=== PATIENT | male | born 1945 | race Caucasian/White ===

== ENCOUNTER 2017-06-01 04:47 | Emergency (ER) | payer MEDICARE ==
[~2017-06-01] VITALS: Ht 177.8 cm; Wt 84.0 kg
[2017-06-01 04:52] VITALS: BP 132/76; PULSE 97; RESP 18; TEMP 98.4; O2SAT 96
[2017-06-01 05:00] VITALS: BP_SYST 121; BP_SYST 133; BP_DIAS 63; BP_DIAS 82; PULSE 87
[2017-06-01 05:02] VITALS: BP 121/83; PULSE 96; RESP 26; O2SAT 96
[2017-06-01] MEDS ORDERED: SODIUM CHLOR 0.9% 1000 ML INJ 1,000 ML IV SCH (05:06)
[2017-06-01] MEDS ORDERED: SODIUM CHLORIDE 0.9% FLUSH 10 ML FLUSH IV FLUSH PRN (05:15)
[2017-06-01] MEDS ORDERED: MORPHINE SULFATE 8 MG/ML INJ IV PUSH ONE (05:15)
[2017-06-01] MEDS ORDERED: ONDANSETRON HCL 4 MG/2 ML VIAL IVP ONE (05:15)
[2017-06-01] MEDS ORDERED: ASPI81CH7 CHEW (05:16)
[2017-06-01] MEDS ORDERED: METO50TA PO (05:16)
[2017-06-01] MEDS ORDERED: PRAS10TA PO (05:16)
[2017-06-01] MEDS ORDERED: ATOR80TA45 PO (05:16)
[2017-06-01] MEDS ORDERED: SPIR25TA PO (05:16)
[2017-06-01] MEDS ORDERED: LOSA25TA PO (05:16)
[2017-06-01 05:19] VITALS: O2SAT 96
--- NOTE | 2017-06-01 05:19 | PD ---
HPI Chief Complaint: Abdominal Pain Time Seen by Provider: 05:03 Travel History International Travel<30 days: No Contact w/Intl Traveler<30days: No Traveled to known affect area: No History of Present Illness HPI 71-year-old male complains of abdominal pains which radiates from the lower back to the lower anterior abdomen. It started about 4 hours ago gradually. The pain is constantly worsening. One episode of vomiting reported. No nausea. No diarrhea. No fever. No similar prior pains. No unusual foods. Patient denies any known history of abdominal aneurysm. He does report a history of hypertension hyperlipidemia and coronary artery disease. PFSH Past Medical History Hx Anticoagulant Therapy: Yes Social History Tobacco Use: No Allergies-Medications (Allergen,Severity, Reaction): Coded Allergies: heparin (Verified Allergy, Intermediate, 06/01/17) Reported Meds & Prescriptions Reported Meds & Active Scripts Active Flomax (Tamsulosin HCl) 0.4 Mg Cap 0.4 Mg PO HS Zofran Odt (Ondansetron Odt) 4 Mg Tab 4 Mg SL Q8HR PRN Percocet (Oxycodone-Acetaminophen) 5-325 mg Tab 1-2 Tab PO Q6H PRN Reported Metoprolol Tartrate 50 Mg Tab 50 Mg PO DAILY Aspirin Children's (Aspirin) 81 Mg Chew 81 Mg CHEW DAILY Losartan (Losartan Potassium) 25 Mg Tab 12.5 Mg PO DAILY Effient (Prasugrel) 10 Mg Tab 10 Mg PO DAILY Atorvastatin (Atorvastatin Calcium) 80 Mg Tab 80 Mg PO HS Spironolactone 25 Mg Tab 25 Mg PO DAILY Review of Systems Except as stated in HPI: all other systems reviewed are Neg General / Constitutional: No: Fever Physical Exam Narrative GENERAL: 71-year-old male moderate distress secondary to pain Vital Signs Date Time Temp Pulse Resp B/P (MAP) Pulse Ox O2 Delivery O2 Flow Rate FiO2 06/01/17 05:02 96 26 121/83 (96) 96 Room Air 06/01/17 04:52 98.4 97 18 132/76 (94) 96 SKIN: Warm and dry. HEAD: Atraumatic. Normocephalic. EYES: Pupils equal and round. No scleral icterus. No injection or drainage. ENT: No nasal bleeding or discharge. Mucous membranes pink and moist. NECK: Trachea midline. No JVD. CARDIOVASCULAR: Regular rate and rhythm. RESPIRATORY: No accessory muscle use. Clear to auscultation. Breath sounds equal bilaterally. GASTROINTESTINAL: Abdomen is soft. There is no focus of tenderness. MUSCULOSKELETAL: Extremities without clubbing, cyanosis, or edema. No obvious deformities. NEUROLOGICAL: Awake and alert. No obvious cranial nerve deficits. Motor grossly within normal limits. Five out of 5 muscle strength in the arms and legs. Normal speech. PSYCHIATRIC: Appropriate mood and affect; insight and judgment normal. Data Data Last Documented VS Orders Orders Complete Blood Count With Diff (06/01/17 05:06) Comprehensive Metabolic Panel (06/01/17 05:06) Lipase (06/01/17 05:06) Lactic Acid (06/01/17 05:06) Urinalysis - C+S If Indicated (06/01/17 05:06) Ct Abd/Pel W Iv Contrast(Rout) (06/01/17 05:06) Iv Access Insert/Monitor (06/01/17 05:06) Ecg Monitoring (06/01/17 05:06) Oximetry (06/01/17 05:06) Ondansetron Inj (Zofran Inj) (06/01/17 05:15) Sodium Chlor 0.9% 1000 Ml Inj (Ns 1000 M (06/01/17 05:06) Sodium Chloride 0.9% Flush (Ns Flush) (06/01/17 05:15) Morphine Inj (Morphine Inj) (06/01/17 05:15) Ketorolac Inj (Toradol Inj) (06/01/17 05:45) Sodium Chlor 0.9% 1000 Ml Inj (Ns 1000 M (06/01/17 05:45) Hydromorphone Pf Inj (Dilaudid Pf Inj) (06/01/17 05:45) Iohexol 350 Inj (Omnipaque 350 Inj) (06/01/17 05:48) Labs Laboratory Tests Test 06/01/17 05:00 06/01/17 06:30 White Blood Count 14.5 TH/MM3 Red Blood Count 5.27 MIL/MM3 Hemoglobin 15.6 GM/DL Hematocrit 47.4 % Mean Corpuscular Volume 89.9 FL Mean Corpuscular Hemoglobin 29.5 PG Mean Corpuscular Hemoglobin Concent 32.9 % Red Cell Distribution Width 12.8 % Platelet Count 287 TH/MM3 Mean Platelet Volume 9.0 FL Neutrophils (%) (Auto) 82.6 % Lymphocytes (%) (Auto) 9.2 % Monocytes (%) (Auto) 7.8 % Eosinophils (%) (Auto) 0.2 % Basophils (%) (Auto) 0.2 % Neutrophils # (Auto) 12.1 TH/MM3 Lymphocytes # (Auto) 1.3 TH/MM3 Monocytes # (Auto) 1.1 TH/MM3 Eosinophils # (Auto) 0.0 TH/MM3 Basophils # (Auto) 0.0 TH/MM3 CBC Comment DIFF FINAL Differential Comment Blood Urea Nitrogen 20 MG/DL Creatinine 1.20 MG/DL Random Glucose 171 MG/DL Total Protein 7.6 GM/DL Albumin 3.9 GM/DL Calcium Level 9.0 MG/DL Alkaline Phosphatase 98 U/L Aspartate Amino Transf (AST/SGOT) 17 U/L Alanine Aminotransferase (ALT/SGPT) 35 U/L Total Bilirubin 0.3 MG/DL Sodium Level 139 MEQ/L Potassium Level 3.8 MEQ/L Chloride Level 106 MEQ/L Carbon Dioxide Level 23.3 MEQ/L Anion Gap 10 MEQ/L Estimat Glomerular Filtration Rate 60 ML/MIN Lactic Acid Level 2.8 mmol/L Lipase 87 U/L Urine Collection Type CLEAN CATCH Urine Color YELLOW Urine Turbidity SLIGHT Urine pH 5.5 Urine Specific [place] 1.025 Urine Protein TRACE mg/dL Urine Glucose (UA) 100 mg/dL Urine Ketones NEG mg/dL Urine Occult Blood LARGE Urine Nitrite NEG Urine Bilirubin NEG Urine Urobilinogen 0.2 MG/DL Urine Leukocyte Esterase NEG Urine RBC 15-19 /hpf Urine Squamous Epithelial Cells 0-5 /hpf Urine Amorphous Sediment FEW Microscopic Urinalysis Comment CULT NOT INDICATED Urine Collection Time 0630 [facility] Medical Decision Making Medical Screen Exam Complete: Yes Emergency Medical Condition: Yes Differential Diagnosis Constipation, Gastritis, Acute Cholecystitis, Biliary Colic, Pancreatitis, COSTA , Hepatitis, Bowel Obstruction, Cystitis, Mesenteric Ischemia, AAA, Appendicitis , Renal Stone/Hydronephrosis, GERD, perforated viscous Narrative Course CBC & BMP Diagram 06/01/17 05:00 Total Protein 7.6, Albumin 3.9, Calcium Level 9.0, Alkaline Phosphatase 98, Aspartate Amino Transf (AST/SGOT) 17, Alanine Aminotransferase (ALT/SGPT) 35, Total Bilirubin 0.3 UA Last Impressions Abdomen/Pelvis CT 06/01/17 0506 Signed Impressions: Service Date/Time: Thursday, June 01, 2017 05:33 - CONCLUSION: 4 x 6 x 5 mm left UVJ stone causing severe obstructive uropathy. The stone can be faintly seen on the [facility] radiograph. Jefry Kumar MD Diagnosis Primary Impression: Kidney calculus Referrals: Primary Care Physician Urologist call for appointment Med/Other Pt SpecificInfo: Prescription(s) given Scripts Tamsulosin (Flomax) 0.4 Mg Cap 0.4 MG PO HS for Manage Prostate Problems, #7 CAP 0 Refills Prov: Teo Ferrera MD 06/01/17 Ondansetron Odt (Zofran Odt) 4 Mg Tab 4 MG SL Q8HR Y for Nausea/Vomiting, #10 TAB 0 Refills Prov: Toe Ferrera MD 06/01/17 Oxycodone-Acetaminophen (Percocet) 5-325 mg Tab 1-2 TAB PO Q6H Y for PAIN SCALE 6 TO 10, #15 TAB 0 Refills Prov: Teo Ferrera MD 06/01/17 Disposition: 01 DISCHARGE HOME Condition: Stable Teo Ferrera MD Jun 01, 2017 05:19
[2017-06-01 05:26] LABS: CHLORIDE 106 MEQ/L (98-107); SODIUM (NA) 139 MEQ/L (136-145)
[2017-06-01 05:29] LABS: ALBUMIN 3.9 GM/DL (3.4-5.0); BICARBONATE 23.3 MEQ/L (21.0-32.0); BLOOD UREA NITROGEN 20 MG/DL (7-18); GLUCOSE,RANDOM 171 MG/DL (74-106)
[2017-06-01 05:32] LABS: ALT (GPT) 35 U/L (12-78); AST (GOT) 17 U/L (15-37); GLOMERULAR FILTRATION RATE 60 ML/MIN (>89)
[2017-06-01 05:34] LABS: TOTAL BILIRUBIN ADULT 0.3 MG/DL (0.2-1.0); TOTAL PROTEIN 7.6 GM/DL (6.4-8.2)
[2017-06-01 05:35] LABS: ALKALINE PHOSPHATASE 98 U/L (45-117)
[2017-06-01] MEDS ORDERED: SODIUM CHLOR 0.9% 1000 ML INJ 1,000 ML IV ONE (05:45)
[2017-06-01] MEDS ORDERED: HYDROmorphone HCL PF 2 MG/ML VIAL IV PUSH ONE (05:45)
[2017-06-01] MEDS ORDERED: KETOROLAC TROMETHAMINE 30 MG/ML (IVP) VIAL IV PUSH ONE (05:45)
[2017-06-01 05:46] VITALS: BP 128/73; PULSE 92; RESP 16; O2SAT 93
[2017-06-01] MEDS ORDERED: IOHEXOL 350 MG/ML 10 ML VIAL (for RAD DIAG) IVCONTRAST ONE (05:48)
[2017-06-01 05:56] LABS: AUTOMATED NEUTROPHIL # 12.1 TH/MM3 (1.8-7.7); BASOPHIL % 0.2 % (0.0-2.0); EOSINOPHIL % 0.2 % (0.0-4.0); HEMATOCRIT 47.4 % (39.0-51.0); HEMOGLOBIN 15.6 GM/DL (13.0-17.0); LYMPH % 9.2 % (9.0-44.0); LYMPHOCYTE # 1.3 TH/MM3 (1.0-4.8); MEAN CELL VOLUME 89.9 FL (80.0-100.0); MEAN CORPUSCULAR HEMOGLOBIN 29.5 PG (27.0-34.0); MEAN CORPUSCULAR HGB CONC 32.9 % (32.0-36.0); MONO % 7.8 % (0.0-8.0); MONOCYTE # 1.1 TH/MM3 (0-0.9); NEUT % 82.6 % (16.0-70.0); PLATELET COUNT 287 TH/MM3 (150-450); RED BLOOD COUNT 5.27 MIL/MM3 (4.50-5.90); RED CELL DISTRIBUTION WIDTH 12.8 % (11.6-17.2); WHITE BLOOD COUNT 14.5 TH/MM3 (4.0-11.0)
--- NOTE | 2017-06-01 05:58 | RADRPT ---
EXAM DATE/TIME: 06/01/2017 05:33 [facility] COMPARISON: No previous studies available for comparison. INDICATIONS : Lower abdominal pain. IV CONTRAST: 75 cc Omnipaque 350 (iohexol) IV ORAL CONTRAST: No oral contrast ingested. RADIATION DOSE: 11.32 CTDIvol (mGy) MEDICAL HISTORY : None SURGICAL HISTORY : None. ENCOUNTER: Initial ACUITY: 1 day PAIN SCALE: 10/10 LOCATION: Bilateral lower quadrant TECHNIQUE: Volumetric scanning of the abdomen and pelvis was performed. Using automated exposure control and ad justment of the mA and/or kV according to patient size, radiation dose was kept as low as reasonably achievable to obtain optimal diagnostic quality images. DICOM format image data is available electro nically for review and comparison. FINDINGS: LOWER LUNGS: The visualized lower lungs are clear. LIVER: Homogeneous fatty density without lesion. There is no dilation of the biliary tree. No calcified ga llstones. SPLEEN: Normal size without lesion. PANCREAS: Within normal limits. KIDNEYS: 4 x 6 x 5 mm stone of the left ureterovesical junction. There is severe hydronephrosis and hydrourete r. There is perinephric edema and delayed nephrogram. No stones or hydronephrosis on the right. There is a 2.7 cm right mid zone cyst. ADRENAL GLANDS: Within normal limits. VASCULAR: There is no aortic aneurysm. BOWEL/MESENTERY: There is diverticulosis of the sigmoid colon but no diverticulitis. Normal appendix. No bowel obstruc tion. ABDOMINAL WALL: Within normal limits. RETROPERITONEUM: There is no lymphadenopathy. BLADDER: No wall thickening or mass. REPRODUCTIVE: Within normal limits. INGUINAL: Small fat containing inguinal hernias. MUSCULOSKELETAL: No acute bony abnormality demonstrated. CONCLUSION: 4 x 6 x 5 mm left UVJ stone causing severe obstructive uropathy. The stone can be faintly seen on the [facility] melter helper radiograph. Jefry Kumar MD on June 01, 2017 at 5:54 Board Certified Radiologist. This report was verified electronically.
[2017-06-01] MEDS ORDERED: PERC5TAB12 PO (06:47)
[2017-06-01] MEDS ORDERED: TAMS5CAP PO (06:47)
[2017-06-01] MEDS ORDERED: ZOFR4TAB3 SL (06:47)
[2017-06-01 06:52] LABS: BILIRUBIN, URINE NEG (NEG); BLOOD, URINE LARGE (NEG); GLUCOSE,URINE 100 mg/dL (NEG); KETONE, URINE NEG (NEG); NITRITE,URINE NEG (NEG); PH, URINE 5.5 (5.0-8.5); URINE COLOR YELLOW (YELLW/STRAW); URINE LEUKOCYTE ESTERASE NEG (NEG)
[2017-06-01 06:55] VITALS: BP 113/67
[2017-06-01 06:57] LABS: AMORPHOUS SEDIMENT, URINE FEW; RBC, URINE 15-19 /hpf (0-3); SQUAMOUS EPITHELIAL CELL URINE 0-5 /hpf (0-5)
== END 2017-06-01 06:59 | disposition home or self-care (01) ==
LOC: PHED 04:47
DX: N13.2 Hydronephrosis with renal and ureteral calculous obstruction (principal); E78.5 Hyperlipidemia, unspecified; I10 Essential (primary) hypertension; I25.10 Atherosclerotic heart disease of native coronary artery without angina pectoris
CPT/HCPCS: 74177; 80053; 81001; 83605; 83690; 85025; 96361; 96374; 96375; 99284; J1170; J1885; J2270; J2405; J7030; Q9967